=== PATIENT | male | born 1965 | race Caucasian/White ===

== ENCOUNTER 2019-01-20 23:21 | Emergency (ER) | payer BC ==
[~2019-01-20] VITALS: Ht 177.8 cm; Wt 90.7 kg
--- NOTE | 2019-01-20 23:25 | NUR ---
Patient to ER bed 1 for evaluation. Side rails up. Report given to Tara KAPADIA
[2019-01-20 23:26] VITALS: BP_SYST 130
--- NOTE | 2019-01-20 23:50 | NUR ---
Pt brought in by . Pt awake, alert, oriented x4. Pt states that he had episode of bilateral arm numbness earlier today, which resolved itself in about 10-15 seconds, with no lasting defecits or complaint. Pt was worried and wanted to be checked out in the ED. Pt presented to ED with no signs of acute distress. Pt denies SOB, CP, N/V, Dizziness, Blurred Vision. Pt denies any additional complaint at this time. 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 No slurred speech. Pt resting comfortably in ED bed in no distress at this time. Pt VSS, will contiue to monitor.
--- NOTE | 2019-01-21 00:03 | NUR ---
ER at bedside examining patient.
[2019-01-21 00:27] LABS: BASOPHILS # (AUTO) 0.1 K/uL (0.0-0.2); BASOPHILS % (AUTO) 0.9 % (0.0-2.0); EOSINOPHILS # (AUTO) 0.2 K/uL (0.0-0.4); EOSINOPHILS % (AUTO) 2.6 % (0.0-4.0); HEMOGLOBIN 14.8 g/dL (14.0-18.0); LYMPHOCYTES # (AUTO) 2.4 K/uL (1.0-5.5); LYMPHOCYTES % (AUTO) 28.5 % (20.5-51.5); MEAN CORPUSCULAR HEMOGLOBIN 32 pg (27-31); MEAN CORPUSCULAR HGB CONC 35 % (32-36); MEAN CORPUSCULAR VOLUME 90 fL (79.0-98.0); MONOCYTES # (AUTO) 0.9 K/uL (0.0-1.0); MONOCYTES % (AUTO) 10.4 % (1.7-9.3); NEUTROPHILS # (AUTO) 4.9 K/uL (1.8-7.7); NEUTROPHILS % (AUTO) 57.6 % (40.0-70.0); PLATELET COUNT (AUTO) 223 K/uL (130-430); RED BLOOD CELL COUNT(AUTO) 4.65 MIL/uL (4.2-6.2); RED CELL DISTRIBUTION WIDTH 12.9 % (9.0-15.0); WHITE BLOOD COUNT (AUTO) 8.5 K/uL (4.8-10.8)
[2019-01-21 00:40] LABS: CALCIUM 8.8 mg/dL (8.4-11.0); CREATININE 1.02 mg/dL (0.55-1.30); POTASSIUM 3.3 mmol/L (3.5-5.1)
[2019-01-21 00:42] LABS: INR 1.1 (0.80-1.20); PROTHROMBIN TIME 10.6 SECS (9.5-12.5)
[2019-01-21 00:48] LABS: BILIRUBIN,URINE NEGATIVE (NEGATIVE); CLARITY/URINE CLEAR (CLEAR); COLOR,URINE YELLOW (YELLOW); GLUCOSE,URINE NEGATIVE (NEGATIVE); KETONES,URINE NEGATIVE (NEGATIVE); LEUKOCYTE ESTERASE ,URINE NEGATIVE (NEGATIVE); NITRITE, URINE NEGATIVE (NEGATIVE); PROTEIN URINE NEGATIVE (NEGATIVE); UROBILINOGEN,URINE 0.2 (0.2-1.0)
[2019-01-21 00:52] LABS: BLOOD, URINE TRACE (NEGATIVE)
[2019-01-21 00:53] LABS: BACTERIA,URINE FEW /HPF (None Seen); RBC,URINE 0-3 /HPF (0-3); WBC,URINE 0-3 /HPF (0-3)
[2019-01-21 00:54] LABS: ALBUMIN 3.4 g/dL (3.4-4.8); THYROID STIMULATING HORMONE 5.9 uIu/mL (0.36-3.74); TOTAL BILIRUBIN 0.4 mg/dL (0.0-1.0)
[2019-01-21 02:20] VITALS: BP_SYST 130
--- NOTE | 2019-01-21 02:20 | NUR ---
Patient given written and verbal discharge instructions and verbalizes understanding. ER MD discussed with patient the results and treatment provided. Patient in stable condition. ID arm band removed. No RX given. Patient educated to follow up with PMD. Pain Scale 0/10. Opportunity for questions provided and answered.
== END 2019-01-21 02:20 | disposition home or self-care (01) ==
LOC: SED 23:21
DX: E87.6 Hypokalemia (principal); E03.9 Hypothyroidism, unspecified; R20.2 Paresthesia of skin; R73.09 Other abnormal glucose; F41.9 Anxiety disorder, unspecified; I10 Essential (primary) hypertension
CPT/HCPCS: 36415; 70450-TC; 71045; 80053; 81000-TC; 82550-TC; 84443-TC; 84484; 85025; 85610-TC; 93005; 99284